=== PATIENT | female | born 1965 | race Caucasian/White ===

== ENCOUNTER 2025-09-28 14:19 | Outpatient (CLI) | payer BC, SELFPAY ==
--- NOTE | ~2025-09-28 | XR_ITS ---
EXAMINATION: XR knee RT 3V, 09/28/2025 14:26 CHEMIST ENZYMES HISTORY: R KNEE PAIN COMPARISON: No comparisons available. Findings: No acute fracture or malalignment. No significant degenerative changes. Soft tissues unremarkable. Impression: No acute fracture or malalignment. Reviewed, dictated and finalized at location P. IST ENZYMES Impression: No acute fracture or malalignment.
--- OUTSIDE RECORDS SUMMARY | 2025-09-28 16:31 | XMS_ITS | Clinical Summary ---
Author Organization [facility] Building A Address [address] [place] [address] Care Team Providers Care Industrial Gas Fitter Helper Name Role Phone Kg Davies MD Primary Care Provider [phone] Koko Ugalde MD Unavailable [phone] Allergies Active Allergy Reactions Criticality Noted Date Comments Sulfa (Sulfonamide Antibiotics) Hives Medium Sulfanilamide Hives Medium Medications busPIRone (BUSPAR) 30 mg tablet Take 1 tablet (30 mg total) by mouth 2 (two) times a day. 180 tablet 3 05/07/2018 Active buPROPion XL (WELLBUTRIN XL) 300 mg 24 hr tablet Take 1 tablet (300 mg total) by mouth daily. 30 tablet 11 10/08/2018 Active venlafaxine XR (EFFEXOR-XR) 75 mg 24 hr capsule 1.5 a day 11/20/2019 Active methylphenidate ER (CONCERTA) 18 mg CR tablet Take 1 tablet (18 mg total) by mouth every morning 02/05/2024 Active rosuvastatin (CRESTOR) 5 mg tablet Take 1 tablet (5 mg total) by mouth every morning 01/22/2023 Active traZODone (DESYREL) 100 mg tablet Take 0.5-1 tablets (50-100 mg total) by mouth nightly 02/05/2024 Active ibuprofen 200 mg tab/cap Take 2 tablet/capsu le (400 mg total) by mouth every 6 (six) hours as needed for pain Active acetaminophen (TYLENOL) 500 mg tablet Take 2 tablets (1,000 mg total) by mouth every 6 (six) hours as needed for pain Active polyethylene glycol (MIRALAX) 17 gram/dose bulk powderIndicatio ns:constipation Take 17 g by mouth daily 510 g 04/24/2025 Active Active Problems Problem Noted Date Diagnosed Date Status post gastrointestinal surgery 05/25/2025 Rectal prolapse 03/25/2025 Family history of colon cancer 02/28/2024 Essential hypertension 11/20/2019 Assessment & Plan (11/20/2019 4:52 PM CARDIOLOGY NURSE): Mild bp consistently up a way and will start on hctz 12.5 family hx of bp but hx blurred with etoh in family. No wt to lose and ekg with rate 67 and nsr. [place] 40 nl and nnl bp effects possible lae I feeel is not issue. Check bp in 3-4 wks and bmp in 6-8 wks and f.u on bp BMI 24.0-24.9, adult 11/20/2019 Assessment & Plan (11/20/2019 4:53 PM CARDIOLOGY NURSE): Work to keep here IGT (impaired glucose tolerance) 07/20/2017 Assessment & Plan (10/08/2018 6:43 PM CARDIOLOGY NURSE): Will call back but stable and Cont same. Assessment & Plan (01/30/2018 4:45 PM CDT): a1c at 5.7 and 5.6 nl.. Assessment & Plan (07/20/2017 9:00 AM CDT): igt with a1c at 5.9 and 6.5 diabetes and 5.6 and leeess nl. Igt is the reduction of tolerance to simple carbs and usually looked at as a pre diabetic state. For most losing weight. Controlling the intake of simple carbs is helpful in improving this. We follow the a1c of most patients to monitor this Moderate episode of recurrent major depressive d isorder 05/10/2017 Assessment & Plan (10/08/2018 6:43 PM CARDIOLOGY NURSE): wellbutrin increased to 4450 and Tolerates and doing well. Assessment & Plan (05/07/2018 9:10 AM CDT): Depression great but unclear if taking 100 or 50 of seroquel. Check into. Can take 2 of the 50 at night but for now what ever doing would not change anything s doing well. But needs to tract and know what on so as to be able to discuss Assessment & Plan (01/30/2018 4:46 PM CDT): .depresion much better. Appetite be tter and back to nl. Cont to take meds Assessment & Plan (07/20/2017 9:02 AM CDT): Depression well controlled. Watch for worsening during the winter. meds stable and stay. Use.look into the bright lights for winter. See if issue of getting worse in winter. The 5 otc herbs that the couselor suggested have no studies and no ay to knoe effect. I don't suspect a problem but usually would not rec toaking Assessment & Plan (05/10/2017 11:33 AM CDT): Per phone call started on seroquel and Finds it was majically better. Wants to know why not o b efore. fornow wokring well and will ask to stay on meds as on for the next monotohs and can consider Hyperlipidemia 09/12/2012 Overview (01/24/2017): HYPERLIPIDEMIA NEC/NOS Assessment & Plan (10/08/2018 6:42 PM CARDIOLOGY NURSE): Reports Up a l sylvain had doneYour cholesterol in the form of ldl (bad) cholesterol,hdl(good) cholesterol and triglycerides are monitored. The triglycerides respond to reduction/controll of your simple carbs/sugars In such items as sugared soda/sweet tea along with fruit juices(containing natural sugar) even if no added sugar is added. LDL cholesterol is reduced with reducing daily intake of fats and mira. saturated fats. The monosaturated fats like olive oil are not harmful except in the calories they contained. Whole milk cheese needs to be remembered along with whole milk products And limited. Assessment & Plan (01/30/2018 5:07 PM CDT): Check on return Pes planus 02/12/2012 Resolved Problems Problem Noted Date Diagnosed Date Resolved Date BMI 25.0-25.9,adult 10/08/2018 11/20/19 20 Assessment & Plan (10/08/2018 6:45 PM CARDIOLOGY NURSE): Stable . Moderate episode of recurren t major depressive disorder 03/26/2018 05/07/2018 Assessment & Plan (03/26/2018 4:47 PM CDT): Not able to preformance abrupt drop.depressoi abrupt worse with support gone with son moving. Not stayiong ontask at work. Can't remember to do jobs assigned. Reviewed meds and referral to psych, increase seroquel to 100mg at night. Cont effector 100 bisd and w ell butrin 300 once aday. Option to increase buspar to ful tab. Re eval in 1wks and work to get into psych bert. If not abale to return to wo rk in a week then look at further med adjsutments. Sore throat 01/30/2018 05/07/2018 Assessment & Plan (01/30/2018 5:08 PM CDT): Check strep today. Likely a uri. Neg strep and uri . Treat symptoms Depression 03/10/2015 05/10/2017 Overview (01/24/2017): DEPRESSIVE DISORDER NEC Pain of foot 02/05/2012 05/07/2018 Immunizations Immunization Administration Dates Next Due Influenza, Quadrivalent, Spl it, Preservative Free, Intradermal 08/03/2015 Influenza, Quadrivalent, Spl it, Preservative Free, Intramuscular 06/25/2018 Influenza, Unspecified 11/20/2019(Deferr ed: Patient Refused),07/22/2019(Deferred: Patient Refused) Moderna SARS-CoV-2 Monovalen t Vaccination (12+ YRS) 11/11/2020,10/12/2020 Tdap 04/29/2020,06/25/2018 Surgical History Surgery Date Site/Laterality Comments OTHER SURGICAL HISTORY 2009 Metrorrhagia: endometrial ablation: [employer] COLONOSCOPY RECTAL PROLAPSE REPAIR, RECTOPEXY 04/21/2025 Rectal Suture Rectopexy Medical History Medical History Date Comments Hx Other Medical counselor Hx Other Medical breast reductio n 2011 Hx Other Medical Metrorrhagia; O utcome: successful Hypertension Depression Motion sickness Family History Medical History Relation Name Comments Colon cancer Sister 2 Cancer -colon; Cause of : Cancer -colon Relation Name Status Comments Sister 1 (Age 29) Sister 2 Social History Tobacco Use Types Packs/Day Years Used Date Smoking Tobacco: Never Passive Smoke Exposure: Past Smokeless Tobacco: Never Tobacco Cessation:Counseling Given: Not Answered Alcohol Use Standard Drinks/Week Comments No 0 (1 standard drink = 0.6 oz pur e alcohol) AUDIT-C Answer Date Recorded Q1: How often do you have a drink containing alcohol? Never 04/21/2025 Q2: How many drinks containi ng alcohol do you have on a typical day when you are drinking? Patient does not drink Q3: How often do you have si x or more drinks on one occasion? Never 04/21/2025 PHQ-2 Answer Date Recorded PHQ-2 Score 0 11/20/2019 Personal Safety Answer Date Recorded Have you ever been in or are you currently in a harmful physical or emotional relationship or is someone making you feel afraid or unsafe? Denies 04/21/2025 Comments No Sex and Gender Information Value Date Recorded Sex Assigned at Not on file Legal Sex Female 2:05 AM CARDIOLOGY NURSE Gender Identity Not on file Sexual Orientation Not on file Last Filed Vital Signs Vital Sign Reading Time Taken Comments Blood Pressure 169/85 05/25/2025 3:13 PM CDT Pulse 72 05/25/2025 3:13 PM CDT Temperature 36.7 C (98 F) 05/25/2025 3:13 PM CDT Respiratory Rate 18 04/24/2025 11:56 AM CDT Oxygen Saturation 98% 05/25/2025 3:13 PM CDT Inhaled Oxygen Concentration - - Weight 61.7 kg (136 lb) 05/25/2025 3:13 PM CDT Height 165.1 cm (5' 5) 05/25/2025 3:13 PM CDT Body Mass Index 22.63 05/25/2025 3:13 PM CDT Plan of Treatment Health Maintenance Due Date Last Done Comments Cervical Cancer Screening 1965 Hepatitis C Screening 1965 Hepatitis B Screening 1983 Regular Well Visit/Exam 18-64 1983 Zoster Vaccine (1 of 2) 2015 Osteoporosis Screening-Bone Density Scan 02/18/2016 02/17/2014 Depression Screening 11/20/2020 11/20/2019, 10/08/2018, 05/07/2018, Additional history exists Breast Cancer Screening-Mammogram 09/04/2022 09/04/2021, 11/21/2016 Covid-19 Vaccine ( season) 2025 11/11/2020, 10/12/2020 Influenza Vaccine (#1) 2025 06/25/2018, 2014 DTaP/Tdap/Td Vaccine (3 - Td or Tdap) 04/29/2030 04/29/2020, 06/25/2018 Colon Cancer Screening-Colonoscopy 03/05/2034 03/05/2024 Colon Cancer Screening-CT Colonography Discontinued 03/05/2024 Colon Cancer Screening-DNA Stool Discontinued 03/05/2024 Colon Cancer Screening-FIT Discontinued 03/05/2024 Colon Cancer Screening-Sigmoidoscopy Discontinued 03/05/2024 Pneumococcal vaccine <65 Aged Out No longer eligible based on patient's age to complete this topic Goals Goal Patient Goal Type Associated Problems Recent Progress Patient-Stated? Author Colorectal Pre-Surgical Steps Care Plan Colorectal Pre-Surgical Plan Shavonne Solo RN Procedures Procedure Name Priority Date/Time Associated Diagnosis Comments COLONOSCOPY 03/05/2024 9:03 AM CDT SCREENING MAMMOGRAM BILATERAL W SHERIF Schedule Routine, Read Routine (OP Routine) 09/04/2021 Visit for screening mammogram HM DEXA SCAN Routine 02/17/2014 from Last 3 Months or Most Recently Relevant to Health Maintenance Results * Colonoscopy (03/05/2024 9:03 AM CDT) Anatomical Region Laterality Modality Other Narrative Procedure Note Saji Matute Jr., MD - 03/05/2024 9:03 AM CDT ENDOSCOPY LAB Patient Name: Danae Torres Procedure Date: 03/05/2024 9:03 AM Date of : 1965 Admit Type: Outpatient Age: 59 Gender: Female Attending MD: Saji Matute Jr, M.D. Room: [facility] ENDOSCOPY ROOM 05 Note Status: Finalized Procedure: Colonoscopy Indications: Constipation Providers: Saji Matute Jr, M.D. Referring MD: Medicines: Propofol per Anesthesia Complications: No immediate complications. Estimated Blood Loss: Estimated blood loss: none. Procedure: Pre-Anesthesia Assessment: - Prior to the procedure, a History and Physicalwas performed, and patient medications and allergieswere reviewed. The patient's tolerance of previous anesthesia was also reviewed. The risks andbenefits of the procedure and the sedation options and risks were discussed with the patient. All questions were answered, and informed consent was obtained. Prior Anticoagulants: The patient has taken noanticoagulant or antiplatelet agents. ASA Grade Assessment: I - A normal, healthy patient. After reviewing the risksand benefits, the patient was deemed in satisfactory condition to undergo the procedure. The benefits, risks and alternatives of theprocedure and sedation were discussed and informed consentwas obtained. All questions were answered. Please referto the signed informed consent document in the medical record. The scope was passed under direct vision.The [id number] was introduced through the anusand advanced to the cecum, identified by appendiceal orifice and ileocecal valve. The colonoscopy was performed without difficulty. The patient tolerated the procedure well. The quality of the bowel preparation was good. The ileocecal valve,appendiceal orifice, and rectum were photographed. Bowel prepwas administered using a split dose. Findings: The perianal and digital rectal examinations were normal. Non-bleeding internal hemorrhoids were found during retroflexion. The hemorrhoids were moderate and Grade III (internal hemorrhoids that prolapse but require manual reduction). Multiple large-mouthed diverticula were found in the sigmoid colon. The exam was otherwise without abnormality on direct and retroflexion views. Impression: - Non-bleeding internal hemorrhoids. - Diverticulosis in the sigmoid colon. - The examination was otherwise normal on directand retroflexion views. - No specimens collected. Recommendation: - Discharge patient to home. - Resume previous diet. - Continue present medications. - Return to surgeon as previously scheduled. Electronically Signed By Saji Matute Jr, M.D. Saji Matute Jr, M.D. 03/05/2024 9:41:18 AM Number of Addenda: 0 Note Initiated On: 03/05/2024 9:03 AM Saji Matute Jr., MD ENDOSCOPY PROCEDURES Final Result * Screening Mammogram Bilateral W Sherif (09/04/2021) Anatomical Region Laterality Modality Breast Bilateral Mammography Berhane Feliciano MD IMG MAMMO PROCEDURE S Final Result * DEXA SCAN (02/17/2014) DEXA Scan Abnormal Comment:Osteopenia of left h ip Historical Provider HEALTH MAINTENANCE Final Result from Last 3 Months or Most Recently Relevant to Health Maintenance Additional Health Concerns Active Problems Noted Date Diagnosed Date Colorectal Pre-Surgical Plan 03/31/2025 Insurance [facility] Advance Directives For more information, please contact: [phone] * Full Code (Latest Code Status on File) Date Activated Date Inactivated Comments 04/21/2025 5:30 PM 04/24/2025 7:01 PM * Full Code Date Activated Date Inactivated Comments 03/05/2024 7:45 AM 03/05/2024 2:37 PM Care Teams Industrial Gas Fitter Helper Relationship Specialty Start Date End Date Kg Davies MD PCP - General Internal Medicine 02/13/24 Koko Ugalde MD [id number] [place] [address] Surgeon Colon and Rectal Surgery 04/07/24
--- OUTSIDE RECORDS SUMMARY | 2025-09-28 16:31 | XMS_ITS | Clinical Summary ---
Author Organization [facility] Address [address] [place] [address] Phone Care Team Providers Care Flea Market Seller Name Role Phone Kg Davies MD Primary Care Provider [phone] Allergies Active Allergy Reactions Criticality Noted Date Comments Sulfa (Sulfonamide Antibiotics) Hives High 11/21 Medications rosuvastatin (CRESTOR) 5 mg tablet 3 Active methylphenidate ER 18 mg tablet,extended release 24 hrIndications:Atte ntion deficit hyperactivity disorder (ADHD), predominantly inattentive type take one tablet by mouth in the morning 30 Tablet 5 Active methylphenidate ER 18 mg tablet,extended release 24 hrIndications:Atte ntion deficit hyperactivity disorder (ADHD), predominantly inattentive type take one tablet by mouth in the morning 30 Tablet 5 Active methylphenidate ER 18 mg tablet,extended release 24 hrIndications:Atte ntion deficit hyperactivity disorder (ADHD), predominantly inattentive type take one tablet by mouth in the morning 30 Tablet 5 Active buPROPion HCL (WELLBUTRIN XL) 300 mg Extended Release 24 hour tabletIndications: Mild episode of recurrent major depressive disorder Take 1 Tablet (300 mg) by mouth daily in the morning. 90 Tablet 5 Active busPIRone (BUSPAR) 30 mg TabletIndications: Mild episode of recurrent major depressive disorder Take 1 Tablet (30 mg) by mouth 2 times daily. 180 Tablet 5 Active traZODone (DESYREL) 100 mg tablet TAKE 1/2 TO 1 TABLET (50MG-100MG) AT BEDTIME ASNEEDED FOR INSOMNIA 90 Tablet Active venlafaxine (EFFEXOR XR) 150 mg Extended Release 24 hour capsuleIndications :Mild episode of recurrent major depressive disorder,Anxiety state Take 1 Capsule (150 mg) by mouth daily. 90 Capsule Active Active Problems No known active problems Encounters Date Type Department Care Team Description 09/07/2025 External Device Data [facility]STRACTION Provider, Abstract 08/18/2025 External Device Data [facility] Provider, Abstract 08/17/2025 External Device Data [facility] Provider, Abstract 07/21/2025 9:45 AM CDT Video Visit [address] [place] [phone] Grant Best MD Attention deficit hyperactivity disorder (ADHD), predominantly inattentive type (Primary Dx); Mild episode of recurrent major depressive disorder; Anxiety state from Last 3 Months Social History Tobacco Use Types Packs/Day Years Used Date Smoking Tobacco: Never Smokeless Tobacco: Never Alcohol Use Standard Drinks/Week Comments Not Currently 0 (1 standard drink = 0.6 oz pur e alcohol) Comments Unknown Sex and Gender Information Value Date Recorded Sex Assigned at Not on file Legal Sex Female 11:17 AM ADULT SCHOOL COUNSELOR Gender Identity Not on file Sexual Orientation Not on file Last Filed Vital Signs Vital Sign Reading Time Taken Comments Blood Pressure 138/84 12/15/2024 10:40 AM ADULT SCHOOL COUNSELOR Pulse 71 12/15/2024 10:40 AM ADULT SCHOOL COUNSELOR Temperature - - Respiratory Rate - - Oxygen Saturation 98% 12/15/2024 10:40 AM ADULT SCHOOL COUNSELOR Inhaled Oxygen Concentration - - Weight 62.1 kg (137 lb) 12/15/2024 10:40 AM ADULT SCHOOL COUNSELOR Height 165.1 cm (5' 5) 07/21/2025 11:55 AM CDT Body Mass Index 22.8 12/15/2024 10:40 AM ADULT SCHOOL COUNSELOR Plan of Treatment Upcoming Encounters Date Type Department Care Team (Late st Contact Info) Description 10/27/2025 9:45 AM ADULT SCHOOL COUNSELOR Video Visit [address] [place] [address] Grant Best MD [address] [place] [address] [place] [phone] Health Maintenance Due Date Last Done Comments HPV/Cotest (21-29) 1986 CERVICAL CANCER SCREENING 1995 HPV/Cotest (30-65) 1995 PAP SMEAR 1995 FIT-DNA Q 3 years 2010 FIT/FOBT Q 1 year 2010 Flex Sig/CT Colonography Q 5 years 2010 ZOSTER VACCINE (1 of 2) 2015 BREAST CANCER SCREENING 09/04/2022 09/04/2021 INFLUENZA VACCINE (#1) 2025 8, 08/03/2015 COVID-19 Vaccine (3 - 2024-2 6 season) 2025 11/11/2020, 10/12/2020 DTAP/TDAP/TD VACCINES (3 - T d or Tdap) 04/29/2030 04/29/2020, 06/25/2018 COLORECTAL SCREENING 03/05/2034 03/05/2024, 03/05/2024 Colorectal Cancer Screening 03/05/2034 RSV VACCINE (60+ or ) (1 - 1-dose 75+ series) 01/08/2040 HEPATITIS B VACCINES Aged Out No long er eligible based on patient's age to complete this topic Insurance [facility] [employer] Care Teams Flea Market Seller Relationship Specialty Start Date End Date Kg Davies MD [address] [place] [id number] PCP - General Internal Medicine 02/21/23
== END 2025-09-28 14:20 | disposition home or self-care (01) ==
PROVIDERS: PCP Internal Medicine; Visit Provider Internal Medicine
DX: M25.561 Pain in right knee (principal)
CPT/HCPCS: 73562